=== PATIENT | female | born 1955 | race Caucasian/White ===

== ENCOUNTER 2016-11-24 15:54 | Emergency (ER) | payer MEDICAID, OTHER ==
[~2016-11-24] VITALS: Ht 162.6 cm; Wt 80.0 kg
[2016-11-24] MEDS ORDERED: IBUPROFEN 600MG TABLET PO STA (19:14)
[2016-11-24 22:10] VITALS: BP 114/63
== END 2016-11-24 22:12 | disposition home or self-care (01) ==
LOC: ER 16:03
DX: S80.12XA Contusion of left lower leg, initial encounter (principal); S60.012A Contusion of left thumb without damage to nail, initial encounter; M25.561 Pain in right knee; W01.0XXA Fall on same level from slipping, tripping and stumbling without subsequent striking against object, initial encounter; Y93.89 Activity, other specified; Y92.512 Supermarket, store or market as the place of occurrence of the external cause
CPT/HCPCS: 73140; 73560; 73590; 99284